=== PATIENT | male | born 1965 | race Native Hawaiian/Other Pacific Islander ===

== ENCOUNTER 2021-03-01 18:37 | Emergency (ER) | payer OTHER ==
[~2021-03-01] VITALS: Ht 188 cm; Wt 90.7 kg
[2021-03-01 19:13] LABS: PLATELET COUNT 404 K/uL (142-355)
[2021-03-01 19:24] LABS: POTASSIUM 3.9 mmol/L (3.6-5.2)
[2021-03-01 20:35] LABS: PARTIAL THROMBOPLASTIN TIME 23.3 SECONDS (24.5-33.6)
[2021-03-01 21:20] VITALS: BP 112/85; TEMP 97.8
== END 2021-03-01 21:20 | disposition short-term general hospital (02) ==
LOC: ED 18:37
PROVIDERS: Hospitalist
DX: S02.32XA Fracture of orbital floor, left side, initial encounter for closed fracture (principal); S02.842A Fracture of lateral orbital wall, left side, initial encounter for closed fracture; S02.40DA Maxillary fracture, left side, initial encounter for closed fracture; S82.142B Displaced bicondylar fracture of left tibia, initial encounter for open fracture type I or II; M25.462 Effusion, left knee; M25.062 Hemarthrosis, left knee; S06.0X1A Concussion with loss of consciousness of 30 minutes or less, initial encounter; U07.1 COVID-19; V23.4XXA Motorcycle driver injured in collision with car, pick-up truck or van in traffic accident, initial encounter; Y92.89 Other specified places as the place of occurrence of the external cause
CPT/HCPCS: 80048; 80320; 85027; 85610; 85730; 87635; 90471; 90715; 96360; 96365; 96375; 99284; J2270; J2405; J3370; Q9963; U0003